=== PATIENT | female | born 1965 | race Caucasian/White ===

== ENCOUNTER → 2016-12-29 | Day surgery (SDC) | payer OTHER ==
[2016-12-27 08:38] VITALS: Ht 163.8 cm; Wt 90.9 kg
[~2016-12-29] VITALS: Ht 163.8 cm; Wt 90.9 kg
[~2016-12-29] MED LIST: CHOL100010 PO; DAYQLIQ PO; LEVA1.258 INH; LIDOCAINE HCL 2% 2 ML VIAL (20MG/ML) ONE; MIDAZOLAM HCL 1 MG/ML 2ML VIAL ONE; OMEG10007 PO; ONDANSETRON INJ 2 MG/ML 2 ML VIAL ONE; PROPOFOL IV EMULSION 10 MG/ML 20 ML VIAL IV ONE; PRVHFAIN INH; SODIUM CHLORIDE 0.9% 500ML 500 ML IV ONE; SYMIN160 INH
--- NOTE | 2016-12-29 14:49 | Endo History and Physical ---
History & Physical Date of Service: Dec 29, 2016. Chief Complaint: History of colon polyps Referring Physician: Dr. Heath History of Present Illness 51 yo CF who presents for colonoscopy secondary to history of colon polyps. Past Medical History Diabetes, Asthma, Depression Past Surgical History Hx Cardiac Surgery: No Hx Internal Defibrillator: No Hx Pacemaker: No Hx Abdominal Surgery: Yes (PARTIAL HYSTER) Hx of Implantable Prosthesis: No Hx Post-Op Nausea and Vomiting: No Hx Cancer Surgery: No Hx Thoracic Surgery: No Hx Orthopedic: Yes (LT CTR) Hx Urinary Tract Surgery: No Family History Colon CA Social History Smoking Status: Never Smoker Hx Substance Use: No Hx Alcohol Use: No Allergies Coded Allergies: Grass (Verified Allergy, Unknown, ASTHMA, 12/27/16) Molds and Smuts (Verified Allergy, Unknown, ASTHMA, 12/27/16) NO KNOWN DRUG ALLERGIES (Verified Allergy, Unknown, ., 12/27/16) POLLEN (Verified Allergy, Unknown, ASTHMA, 12/27/16) Current Medications Reported Home Medications Medications Dose Route/Sig Max Daily Dose Days Date Category [Dayquil] 1 Tab PO DAILY OR BID PRN 12/27/16 Reported Ventolin Hfa (Albuterol) 60 Puffs/5400 Mcg Aers 2 Puffs INH Q6H PRN 12/27/16 Reported Symbicort 160/4.5 Inhaler (Budesonide/Formoterol Fumarate) Aero 2 Puffs INH BID PRN 12/27/16 Reported Levalbuterol Hcl 1.25 Mg/3 Ml Neb 1 Vial INH TID PRN 12/27/16 Reported Vitamin D (Cholecalciferol) 1,000 Inter.unit Tab 2,000 Inter.unit PO DAILY 01/20/14 Reported [place]-3 (Fish Oil) 1 Ea Cap 1 Cap PO DAILY 01/17/14 Reported Vital Signs Weight (Kilograms): 90.91 Height (Feet): 5 Height (Inches): 4.5 Physical Exam General Appearance: WD/WN, no apparent distress Respiratory/Chest: Auscultation: breath sounds normal Cardiovascular: Heart Auscultation: RRR Abdomen: Bowel Sounds: normal Inspection & Palpation: soft, non-distended, no tenderness, guarding & rebound Assessment and Plan Assessment: 51 yo CF who presents for colonoscopy secondary to history of colon polyps. Plan: Proceed with colonoscopy.
--- NOTE | 2016-12-29 15:15 | Discharge Instructions ---
Endoscopy Patient Instructions Date / Procedure(s) Performed Dec 29, 2016. Colonoscopy Allergy Information Coded Allergies: Grass (Verified Allergy, Unknown, ASTHMA, 12/27/16) Molds and Smuts (Verified Allergy, Unknown, ASTHMA, 12/27/16) NO KNOWN DRUG ALLERGIES (Verified Allergy, Unknown, ., 12/27/16) POLLEN (Verified Allergy, Unknown, ASTHMA, 12/27/16) Discharge Date / Findings Dec 29, 2016. Internal hemorrhoids Medication Instructions OK to resume all medications today as prescribed. Reported Home Medications Medications Dose Route/Sig Max Daily Dose Days Date Category [Dayquil] 1 Tab PO DAILY OR BID PRN 12/27/16 Reported Ventolin Hfa (Albuterol) 60 Puffs/5400 Mcg Aers 2 Puffs INH Q6H PRN 12/27/16 Reported Symbicort 160/4.5 Inhaler (Budesonide/Formoterol Fumarate) Aero 2 Puffs INH BID PRN 12/27/16 Reported Levalbuterol Hcl 1.25 Mg/3 Ml Neb 1 Vial INH TID PRN 12/27/16 Reported Vitamin D (Cholecalciferol) 1,000 Inter.unit Tab 2,000 Inter.unit PO DAILY 01/20/14 Reported [place]-3 (Fish Oil) 1 Ea Cap 1 Cap PO DAILY 01/17/14 Reported Provider Instructions Activity Restrictions - No exercising or heavy lifting for 24 hours. - Do not drink alcohol the day of the procedure. - Do not drive a car or operate machinery until the day after the procedure. - Do not make any important decisions or sign important papers in 24 hours after the procedure. Following Day: - Return to full activity which may include returning to work/school. Diet Start your diet with liquids and light foods (jello, soup, juice, toast). Then eat your usual diet if not nauseated. Treatment For Common After Affects For mild abdominal pain, bloating, or excessive gas: - Rest - Eat lightly - Lie on right side Follow-Up Information Follow-up with as scheduled Anesthesia Information What You Should Know You have had a procedure that required some medicine to reduce anxiety and discomfort. This treatment is called moderate sedation. After receiving the treatment, you may be sleepy, but you will be able to breathe on your own. The effects of the treatment may last for several hours. Follow these instructions along with Activity/Diet recommendations noted above: * Do NOT do anything where dizziness or clumsiness would be dangerous. * Rest quietly at home today, then you can be up and about tomorrow. * Have a responsible person stay with you the rest of today. * You may have had an I.V. today. If so, you may take the dressing off later today. Recommendations Call your doctor if: * Trouble breathing * Continuous vomiting for more than 24 hours * Temperature above 101 degrees * Severe abdominal pain or bloating * Pain not relieved by pain medicine ordered * There is increased drainage or redness from any incision * A large amount of rectal bleeding greater than 2-3 tablespoons. (If you had a polyp/s removed or have hemorrhoids, a small amount of blood - from the rectum is to be expected.) * You have any unanswered questions or concerns. IN THE EVENT OF A SERIOUS EMERGENCY, GO TO THE NEAREST EMERGENCY ROOM Your discharge instructions were prepared by provider Mandeep Roche. Patient Instructions Signature Page Ama Tineo Patient (or Guardian) Signature/Date: I have read and understand the instructions given to me by my caregivers. Caregiver/RN/Doctor Signature/Date: The above-named patient and/or guardian has received patient instructions on this date. + Original Patient Signature Page (only) stays with chart. Please make copy for patient.
--- NOTE | 2016-12-29 15:47 | GI REPORT ---
Procedure Date: 12/29/2016 3:13 PM Procedure: Colonoscopy Indications: High risk colon cancer surveillance: Personal history of colonic polyps Medicines: Monitored Anesthesia Care Complications: No immediate complications. Estimated Blood Loss: Estimated blood loss: none. Procedure: Pre-Anesthesia Assessment: - Prior to the procedure, a History and Physical was performed, and patient medications and allergies were reviewed. The patient's tolerance of previous anesthesia was also reviewed. The risks and benefits of the procedure and the sedation options and risks were discussed with the patient. All questions were answered, and informed consent was obtained. Prior Anticoagulants: The patient has taken no previous anticoagulant or antiplatelet agents. ASA Grade Assessment: II - A patient with mild systemic disease. After reviewing the risks and benefits, the patient was deemed in satisfactory condition to undergo the procedure. After I obtained informed consent, the scope was passed under direct vision. Throughout the procedure, the patient's blood pressure, pulse, and oxygen saturations were monitored continuously. The scope was introduced through the anus and advanced to the terminal ileum. The colonoscopy was performed without difficulty. The patient tolerated the procedure well. The quality of the bowel preparation was good. The terminal ileum, ileocecal valve, appendiceal orifice, and rectum were photographed. Findings: Non-bleeding internal hemorrhoids were found during retroflexion. The hemorrhoids were small. The exam was otherwise without abnormality. Impression: - Non-bleeding internal hemorrhoids. - The examination was otherwise normal. - No specimens collected. Recommendation: - Resume previous diet. - Continue present medications. - Repeat colonoscopy in 5 years for surveillance. - Return to primary care physician as previously scheduled. Mandeep Roche, DO 12/29/2016 3:46:55 PM This report has been signed electronically. Note Initiated On: 12/29/2016 3:13 PM I attest to the content of the Intraoperative Record and orders documented therein, exceptions below
--- NOTE | 2016-12-29 15:59 | Anesthesiology Progress Note ---
Anesthesia Post Op Note Date & Time Dec 29, 2016 at 16:00 Vital Signs Pain Intensity: 0 Vital Signs Past 12 Hours Date Time Temp Pulse Resp B/P Pulse Ox O2 Delivery O2 Flow Rate FiO2 12/29/16 15:45 69 16 99/58 97 Room Air 12/29/16 14:51 36.8 72 14 128/62 96 Room Air Notes Mental Status: alert / awake / arousable, participated in evaluation Pt Amnestic to Procedure: Yes Nausea / Vomiting: adequately controlled Pain: adequately controlled Airway Patency, RR, SpO2: stable & adequate BP & HR: stable & adequate Hydration State: stable & adequate Anesthetic Complications: no major complications apparent
[2016-12-29 16:15] VITALS: BP 130/87; PULSE 61; O2SAT 97
== END | disposition home or self-care (01) ==
LOC: C.GI 13:59
PROVIDERS: ATTEND Internal Medicine
DX: Z12.11 Encounter for screening for malignant neoplasm of colon (principal); Z86.010 Personal history of colon polyps; K64.8 Other hemorrhoids; Z80.0 Family history of malignant neoplasm of digestive organs; E11.9 Type 2 diabetes mellitus without complications; J45.909 Unspecified asthma, uncomplicated; F32.9 Major depressive disorder, single episode, unspecified; Z90.710 Acquired absence of both cervix and uterus

== ENCOUNTER → 2017-03-01 | Outpatient (CLI) | payer OTHER ==
[~2017-03-01] MED LIST changes: -LIDOCAINE HCL 2% 2 ML VIAL (20MG/ML) ONE; -MIDAZOLAM HCL 1 MG/ML 2ML VIAL ONE; -ONDANSETRON INJ 2 MG/ML 2 ML VIAL ONE; -PROPOFOL IV EMULSION 10 MG/ML 20 ML VIAL IV ONE; -SODIUM CHLORIDE 0.9% 500ML 500 ML IV ONE
[2017-03-01 09:36] LABS: ESTIMATED AVERAGE GLUCOSE 128 mg/dl; HA1C FLAG Normal (Normal)
[2017-03-01 09:40] LABS: ALT/SGPT 32 U/L (12-78); AST/SGOT 18 U/L (15-37); BLOOD UREA NITROGEN 19 mg/dl (7-18); BUN/CREATININE RATIO 21.6 (10-20); CARBON DIOXIDE 25 mmol/L (21-32); CHLORIDE 110 mmol/L (98-107); CHOLESTEROL 153 mg/dl (0-200); CREATININE 0.88 mg/dl (0.60-1.20); GLUCOSE 122 mg/dl (70-99); SODIUM 142 mmol/L (136-145); TRIGLYCERIDES 160 mg/dl (0-150); VERY LOW DENSITY LIPOPROT CALC 32 mg/dl
[2017-03-01 09:43] LABS: CHOLESTEROL/HDL RATIO 5.1; HDL CHOLESTEROL 30 mg/dl; LDL CHOLESTEROL CALCULATED 91 mg/dl
[2017-03-01 09:44] LABS: HEMATOCRIT 37.4 % (37-47); MEAN CELL VOLUME 80.3 fL (80-100); MEAN CORPUSCULAR HEMOGLOBIN 27.7 pg (25-34); MEAN CORPUSCULAR HGB CONC 34.5 g/dl (32-36); MEAN PLATELET VOLUME 9.8 fL (7.4-10.4); PLATELET COUNT 185 K/uL (130-400); RED BLOOD COUNT 4.66 M/uL (4.2-5.4); WHITE BLOOD COUNT 1.78 K/uL (4.8-10.8)
[2017-03-01 09:59] LABS: BASO % 0.6 %; BASO ABS # 0.01 K/uL (0-0.2); COMPLETE YES; EOS % 2.2 %; LARGE PLATELETS 1+; LYMPH % 61.2 %; LYMPH ABS # 1.09 K/uL (1.2-3.4); MONO % 19.7 %; NEUT % 16.3 %
[2017-03-01 10:10] LABS: CALCIUM 9.4 mg/dl (8.5-10.1)
== END | disposition home or self-care (01) ==
LOC: C.LAB 07:59
PROVIDERS: ATTEND Internal Medicine
DX: R73.03 Prediabetes (principal); D70.9 Neutropenia, unspecified; E78.5 Hyperlipidemia, unspecified

== ENCOUNTER → 2017-12-07 | Outpatient (CLI) | payer OTHER ==
--- NOTE | 2017-12-07 12:24 | DIAGNOSTIC IMAGING REPORT ---
CHEST 2 VIEWS ROUTINE CLINICAL HISTORY: R05 cough COMPARISON STUDY: 04/27/2016 FINDINGS: The cardiac and mediastinal contours are normal. There is no evidence of focal pulmonary consolidation. There is no evidence of failure. No pleural effusions are visualized.[ IMPRESSION: No active disease in the chest. Electronically signed by: Benson Mtz M.D. 12/07/2017 12:22 PM Dictated Date/Time: 12/07/2017 12:22 PM
[2017-12-07 13:25] LABS: BASO % 0.3 %; BASO ABS # 0.01 K/uL (0-0.2); EOS % 0.5 %; EOS ABS # 0.02 K/uL (0-0.5); HEMATOCRIT 39.8 % (37-47); HEMOGLOBIN 13.8 g/dL (12.0-16.0); IG# 0.03 K/uL (0.00-0.02); LYMPH % 28.9 %; LYMPH ABS # 1.06 K/uL (1.2-3.4); MEAN CELL VOLUME 81.4 fL (80-100); MEAN CORPUSCULAR HEMOGLOBIN 28.2 pg (25-34); MEAN CORPUSCULAR HGB CONC 34.7 g/dl (32-36); MEAN PLATELET VOLUME 9.4 fL (7.4-10.4); MONO % 10.6 %; MONO ABS # 0.39 K/uL (0.11-0.59); NEUT % 58.9 %; NEUT ABS # 2.16 K/uL (1.4-6.5); PLATELET COUNT 250 K/uL (130-400); RED CELL DISTRIBUTION WIDTH CV 14.3 % (11.5-14.5); RED CELL DISTRIBUTION WIDTH SD 41.8 fL (36.4-46.3); WHITE BLOOD COUNT 3.67 K/uL (4.8-10.8)
[2017-12-07 13:54] LABS: BLOOD UREA NITROGEN 27 mg/dl (7-18); CALCIUM 9.4 mg/dl (8.5-10.1); CARBON DIOXIDE 25 mmol/L (21-32); CREATININE 0.92 mg/dl (0.60-1.20); GLUCOSE 135 mg/dl (70-99); POTASSIUM 3.9 mmol/L (3.5-5.1); SODIUM 136 mmol/L (136-145)
== END | disposition home or self-care (01) ==
LOC: C.RAD1850 11:55
PROVIDERS: ATTEND Nurse Practitioner Adult Health
DX: R05 Cough (principal)

== ENCOUNTER → 2018-01-12 | Outpatient (CLI) | payer OTHER ==
--- NOTE | 2018-01-13 06:42 | PAP/PSG TECHNICIAN REPORT ---
[facility] Corporate Director Of Pharmacy Polysomnogram Report Study name: None Report date: 01/13/2018 Study date: 01/12/2018 Referring Physician: DR. STANLEY Name: LUZ TINEO Interpreting Physician: Breezy Stanley M.D. Date of : 1965 Corporate Director Of Pharmacy: Freddy Gottlieb RPSSUSHILA. Sex: Female Age: 52 StudyType: PSG Weight: 15.5 inches Height: 52 years, Height Neck Circum: BMI: Medications: FLUTICASONE PROPIONATE 50 MCG/ACT, GLUCOSAMINE-CHONDROITIN, LEVALBUTEROL HCL 1.25 MG, METHYLPREDNISOLONE 4 MG, OMEGA 3, ONETOUCH ULTRA BLUE, SYMBICORT 160-4.5 MCG/ACT, VENTOLIN HFA 108 90 BASE Patient History PATIENT HAS HISTORY OF DAYTIME SLEEPINESS AND SNORING. SHE HAD A SLEEP STUDY DONE MANY YEARS AGO BUT WAS NOT POSITIVE FOR ABI. SHE HAS GAINED SOME WEIGHT SINCE THEN. SHE IS HERE TODAY FOR AN EVALUATION FOR ABI. ESS = 11 RM 8 Parameters Monitored NPSG: E1-M2, E2-M1, Fp1-M2, Fp2-M1, F3-M2, F4-M2, F4-M1, C3-M2, C4-M2, C4-M1, O1-M2, O2-M2, O2-M1, T3-M2, T4-M1, P3-M2, P4-M1, CHIN1, CHIN2, HR, EKG, Legs, PFLOW, SNOR, FLOW, CFLOW, Tidal Volume, THOR, ABDO, SpO2, PLTH, CPRESS, ETCO2 Wave, ETCO2, pH Sleep Architecture Sleep Stages Time at Lights Off 10:33:04 PM STAGES Time (min.) TST (%) Time at Lights On 5:55:34 AM Wake 54.5 -- Total Recording Time (TRT) 443.00 min. N1 22.0 6 Total Sleep Period (TSP) 431.0 min. N2 269.5 69 Total Sleep Time (TST) 388.0min. N3 32.0 8 Awake Time 54.5 min. REM 64.5 17 Wake after Sleep Onset 43.0 min. Sleep Efficiency (SE) 88 % Sleep Onset Latency (YAJAIRA) 11.5 min. Number of Stage 1 Shifts None Awakenings 25 Stage Changes 85 Number of REM periods 6 REM 64.5 17 REM Latency 134.0 min. NREM 323.5 83 Body Position Analysis Supine Right Left Side Prone Vertical Total Sleep Time (min.) 1.7 108.3 194.7 303.00 91.6 0.0 Total Sleep Time (%) 0% 28% 50% 78 22% N/A% Total Sleep Time REM (min.) 0.0 33.0 18.0 None 13.5 0.0 Total Sleep Time NREM (min.) 0.0 75.3 176.7 None 71.5 0.0 Intermittent Wake (min.) 1.7 6.6 39.6 None 6.6 0.0 Total Sleep Period (%) 0% None None None None None Arousals Myoclonus (PLM) * Events Count Index Events Count Index Spontaneous 38 6 Events Awake (PLMW) 38 41.8 Respiratory 9 1.4 Events Asleep w/ Arousal (PLMA) 1 0.2 PLM 0 0 Events Asleep w/o Arousal (PLMS) 31 4.8 Snoring 7 1 Total Asleep 32 4.9 Total 54 8 Total 70 9 Respiratory Analysis * CA OA MA CH H RERA Total Count 0 7 0 0 98 4 105 Index 0.0 1.1 0.0 0 15.2 1 16.9 Mean Duration 0.0 12.5 0.0 0.00 16.8 13.7 16.4 Longest Duration 0.0 14.5 0.0 0.00 0.0 14.5 33.5 Respiratory Event Summary Total Supine ~Supine Right Left Prone REM NREM Apneas Count 7 N/A 7 3 3 1 4 3 Index 1.1 N/A 1 1.7 0.9 1 4 1 Hypopneas (4% Desat) Count 98 N/A 98 17 65 16 33 65 Index 15.2 N/A 15 9.4 20.0 11.3 30.7 12.1 Apneas & All Hypopneas Count 105 N/A 105 20 68 17 37 68 Index 16.2 N/A 16 11 21 12 34.4 12.6 Respiratory Events ([employer] Operator+All Hyp+RERA) Count 105 N/A 109 20 71 18 37 68 Index 16.9 N/A 17 11.1 21.9 12.7 34.4 13.4 Respiratory Related Arousal Count 9 N/A 9 0 8 1 0 9 Index 1.4 N/A 1 0 2 1 0 2 Snoring Analysis Supine Right Left Prone REM NREM Total Snore duration 59.6 min Snores count N/A 636 1,145 889 609 2,061 2,670 Snore mean duration 1.3 Sec Snores index N/A 352 353 628 566.5 382.3 412.9 TST with snoring (%) 15.4% Desaturation Event Summary: Minimum %SpO2 Event Count Mean/Min/Max Duration(sec.) Desaturation Index % Time In Bed > 90 69 31.8 / 10.8 / 61.0 30.7 30.5 86 - 90 58 26.6 / 10.8 / 53.7 11.6 67.9 81 - 85 0 N/A 0.0 1.6 76 - 80 0 N/A 0.0 0.0 71 - 75 0 N/A 0.0 0.0 66 - 70 0 N/A 0.0 0.0 61 - 65 0 N/A 0.0 0.0 56 - 60 0 N/A 0.0 0.0 51 - 55 0 N/A 0.0 0.0 < 50 0 N/A 0.0 0.0 Total REM NREM Awake <50% 0.0 min. 0.0 min. 0.0 min. 0.0 min. 51 - 60% 0.0 min. 0.0 min. 0.0 min. 0.0 min. 61 - 70% 0.0 min. 0.0 min. 0.0 min. 0.0 min. 71 - 80% 0.1 min. 0.1 min. 0.0 min. 0.0 min. 81 - 90% 307.1 min. 48.0 min. 239.3 min. 19.8 min. 91 - 100% 135.0 min. 16.3 min. 84.2 min. 34.5 min. Average 90 89 90 91 Minimum SpO2 77 77 84 84 Desaturation Event Index 15.1 35.3 12.2 7.7 # Desat. Events below 89% 96 34 58 4 Time(%) with Saturation below 89% 22.4 5.7 15.6 1.0 Time(min.) with Saturation below 89% 98.9 25.4 69.1 4.4 Time (mins) REM (mins) NREM (mins) % of TST SpO2 Below 90% 104 38 N66 47.1 SpO2 Below 88% 45 0 0 10 Heart Rate Analysis Min (bpm) Max (bpm) Average (bpm) Awake 57 127 73 NREM 56 99 71 REM 59 101 78 Overall 56 101 72 Supplemental O2 Values Minimum O2 level: None Value Start Time End Time Corporate Director Of Pharmacy Comments Ms. Tineo slept in the right, left, supine and prone positions. PVC's noted. Leg movements noted. No bruxism noted. Snoring was noted and scored as a 3 on a scale of 1 through 5. (0=no snoring, 5=snoring loud enough to be heard through a closed door or down the andre way) Ms. Tineo awoke to use the restroom 0 times during the night. Ms. Tineo stated I did not sleep as well as I do when I am in my own bed. The final report will be interpreted and signed by a sleep physician. The completed physician report will then be placed in the patient medical record. Therapy (cm H2O) 0 TIB (min.) 442.5 TST (min.) 388.0 Sleep Onset (min.) 11.5 REM Onset From Sleep (min.) 134.0 Sleep Efficiency % 88 Wakefulness (%) 12 Wakefulness (min.) 54.5 NREM 1 (%) 6 NREM 1 (min.) 22.0 NREM 2 (%) 69 NREM 2 (min.) 269.5 NREM 3 (%) 8 NREM 3 (min.) 32.0 REM (%) 17 REM (min.) 64.5 # Arousals 54 Arousal Index 8 # Snore 2,670 Snore Index 412.9 AHI 16.2 AHI Supine N/A AHI Non-Supine 16 NREM AHI 12.6 REM AHI 34.4 RDI 16.9 # Obstructive Apnea 7 # Central Apnea 0 # Mixed Apnea 0 # Hypopneas 98 RERAs 4 Total Respiratory Events 110 Time Below SpO2 89% (min.) 94.6 Mean NREM SpO2 (%) 90 Mean REM SpO2 (%) 89 Mean Sleep SpO2 (%) 89 Min NREM SpO2 (%) 84 Min REM SpO2 (%) 77 Position Supine (min.) 1.7 Position Non-supine (min.) 388.0 LM Index Sleep 4.9 LM Index NREM 2.8 LM Index REM 15.8 Mean Heart Rate (bpm) 72 Min Heart Rate (bpm) 56
--- NOTE | 2018-01-19 12:41 | POLYSOMNOGRAPH REPORT ---
CLINICAL DATA: A 52-year-old female referred by myself, Elizabeth Parisi and Dr. Heath for evaluation of fatigue and sleep disturbance. The patient had a sleep study done in 2004 which did not show evidence of sleep apnea. Since that time, she has gained weight and has had loud snoring reported. Her [place] sleepiness score is 11/24. SLEEP ARCHITECTURE: Total sleep period was 431 minutes. Total sleep time was 388 minutes divided between 323.5 minutes of non-REM sleep and 64.5 minutes of REM sleep. Sleep onset latency was 11.5 minutes. REM latency was 134 minutes. Sleep efficiency was 88%. Wake after sleep onset was 43 minutes. Sleep consisted of stage N1 6%, stage N2 69%, stage N3 8%, and REM 17%. AROUSAL DATA: Fifty four arousals were recorded for an index of 8 per hour. Thirty eight were spontaneous. PERIODIC LIMB MOVEMENT DATA: Thirty two limb movements during sleep were noted for an index of 4.9 per hour with arousal index of 0.2 per hour. RESPIRATORY DATA: Moderate sleep apnea was seen. The AHI was 16.2. The RDI was 16.9. There were 7 obstructive apneic episodes. The longest apneic episode was 14.5 seconds. There were 98 hypopneic episodes with a mean duration of 16.8 seconds. There were 4 RERAs. The longest RERA was 14.5 seconds. OXIMETRY DATA: Nocturnal hypoxemia was seen. Oxygen corina was 77% during REM. Mean saturation was 90%. Time below 88% was 45 minutes. ECHOCARDIOGRAM: Heart rate ranged from 56-101 beats per minute. PVCs were noted. [employer] COMMENTS: The patient slept in the right, left, supine, and prone position. Snoring was moderate, rated 3 on a scale of 1-5. IMPRESSION: Moderate sleep apnea/hypopnea with an apnea/hypopnea index of 16.2 and a respiratory disturbance index of 16.9 with nocturnal hypoxemia. RECOMMENDATIONS: The patient may benefit from use of an oral appliance, use of auto CPAP, or repeat sleep study with CPAP. Clinical correlation is needed. [facility]
== END | disposition home or self-care (01) ==
LOC: C.NEUR 20:00
PROVIDERS: ATTEND Internal Medicine Pulmonary Disease
DX: J45.909 Unspecified asthma, uncomplicated (principal); R05 Cough; R53.83 Other fatigue

== ENCOUNTER → 2018-01-27 | Outpatient (CLI) | payer OTHER ==
--- NOTE | 2018-01-28 06:27 | PAP/PSG TECHNICIAN REPORT ---
[facility] It Programmer Analyst Polysomnogram Report Study name: None Report date: 01/28/2018 Study date: 01/27/2018 Referring Physician: DR. STANLEY Name: LUZ TINEO Interpreting Physician: Breezy Stanley M.D. Date of : 1965 It Programmer Analyst: Inocencia Mendenhall [facility]. Sex: Female Age: 53 StudyType: PSG PAP Weight: Height: 53 years, Height Neck Circum: 15.5 inches BMI: Medications: FLUTICASONE PROPIONATE 50 MCG/ACT, GLUCOSAMINE-CHONDROITIN, LEVALBUTEROL HCL 1.25 MG, METHYLPREDNISOLONE 4 MG, OMEGA 3, ONETOUCH ULTRA BLUE, SYMBICORT 160-4.5 MCG/ACT, VENTOLIN HFA 108 90 BASE Patient History 53 yr. old female here for a new titration sleep study. Patients PSG was done on 01/12/18 and she had an AHI of 16.9. ESS 09/29 Parameters Monitored NPSG: E1-M2, E2-M1, Fp1-M2, Fp2-M1, F3-M2, F4-M2, F4-M1, C3-M2, C4-M2, C4-M1, O1-M2, O2-M2, O2-M1, T3-M2, T4-M1, P3-M2, P4-M1, CHIN1, CHIN2, HR, EKG, Legs, PFLOW, SNOR, FLOW, CFLOW, Tidal Volume, THOR, ABDO, SpO2, PLTH, CPRESS, ETCO2 Wave, ETCO2, pH Sleep Architecture Sleep Stages Time at Lights Off 10:30:39 PM STAGES Time (min.) TST (%) Time at Lights On 5:57:39 AM Wake 38.0 -- Total Recording Time (TRT) 447.00 min. N1 20.0 5 Total Sleep Period (TSP) 434.5 min. N2 286.5 70 Total Sleep Time (TST) 409.0min. N3 26.5 6 Awake Time 38.0 min. REM 76.0 19 Wake after Sleep Onset 25.5 min. Sleep Efficiency (SE) 91 % Sleep Onset Latency (YAJAIRA) 12.5 min. Number of Stage 1 Shifts None Awakenings 22 Stage Changes 81 Number of REM periods 8 REM 76.0 19 REM Latency 57.5 min. NREM 333.0 81 Body Position Analysis Supine Right Left Side Prone Vertical Total Sleep Time (min.) 11.2 145.5 255.1 400.59 0.0 5.7 Total Sleep Time (%) 2% 36% 62% 98 0% N/A% Total Sleep Time REM (min.) 0.0 22.5 53.5 None 0.0 0.0 Total Sleep Time NREM (min.) 8.4 123.0 201.6 None 0.0 0.0 Intermittent Wake (min.) 2.8 12.9 16.5 None 0.0 5.7 Total Sleep Period (%) 2% None None None None None Arousals Myoclonus (PLM) * Events Count Index Events Count Index Spontaneous 13 2 Events Awake (PLMW) 51 80.5 Respiratory 0 0.0 Events Asleep w/ Arousal (PLMA) 10 1.5 PLM 10 1 Events Asleep w/o Arousal (PLMS) 44 6.5 Snoring 3 0 Total Asleep 54 7.9 Total 26 4 Total 105 14 Respiratory Analysis * CA OA MA CH H RERA Total Count 0 0 0 0 3 0 3 Index 0.0 0.0 0.0 0 0.4 0 0.4 Mean Duration 0.0 0.0 0.0 0.00 28.6 0.0 28.6 Longest Duration 0.0 0.0 0.0 0.00 0.0 0.0 37.7 Respiratory Event Summary Total Supine ~Supine Right Left Prone REM NREM Apneas Count 0 0 0 0 0 N/A 0 0 Index 0.0 0 0 0.0 0.0 N/A 0 0 Hypopneas (4% Desat) Count 3 0 3 0 3 N/A 0 3 Index 0.4 0.0 0 0.0 0.7 N/A 0.0 0.5 Apneas & All Hypopneas Count 3 0 3 0 3 N/A 0 3 Index 0.4 0 0 0 1 N/A 0.0 0.5 Respiratory Events (Rehabilitation Medicine Physician+All Hyp+RERA) Count 3 0 3 0 3 N/A 0 3 Index 0.4 0 0 0.0 0.7 N/A 0.0 0.5 Respiratory Related Arousal Count 0 0 0 0 0 N/A 0 0 Index 0.0 0 0 0 0 N/A 0 0 Snoring Analysis Supine Right Left Prone REM NREM Total Snore duration 17.1 min Snores count 4 23 725 N/A 2 750 752 Snore mean duration 1.4 Sec Snores index 29 9 171 N/A 1.6 135.1 110.3 TST with snoring (%) 4.2% Desaturation Event Summary: Minimum %SpO2 Event Count Mean/Min/Max Duration(sec.) Desaturation Index % Time In Bed > 90 11 25.8 / 12.8 / 52.3 3.9 38.0 86 - 90 9 18.1 / 7.8 / 42.3 2.0 62.0 81 - 85 0 N/A 0.0 0.0 76 - 80 0 N/A 0.0 0.0 71 - 75 0 N/A 0.0 0.0 66 - 70 0 N/A 0.0 0.0 61 - 65 0 N/A 0.0 0.0 56 - 60 0 N/A 0.0 0.0 51 - 55 0 N/A 0.0 0.0 < 50 0 N/A 0.0 0.0 Total REM NREM Awake <50% 0.0 min. 0.0 min. 0.0 min. 0.0 min. 51 - 60% 0.0 min. 0.0 min. 0.0 min. 0.0 min. 61 - 70% 0.0 min. 0.0 min. 0.0 min. 0.0 min. 71 - 80% 0.0 min. 0.0 min. 0.0 min. 0.0 min. 81 - 90% 275.8 min. 58.9 min. 206.8 min. 10.1 min. 91 - 100% 169.0 min. 17.0 min. 125.1 min. 26.9 min. Average 90 90 90 91 Minimum SpO2 86 87 86 88 Desaturation Event Index 2.0 0.0 1.8 7.9 # Desat. Events below 89% 10 N/A 8 2 Time(%) with Saturation below 89% 8.4 2.6 5.7 0.0 Time(min.) with Saturation below 89% 37.2 11.5 25.6 0.2 Heart Rate Analysis End Tidal CO2 Analysis Min (bpm) Max (bpm) Average (bpm) TSP (mins) % of TSP Awake 38 127 69 Above 55 mmHg 0.0 0.0 NREM 55 87 66 50-55 mmHg 0.0 0.0 REM 60 92 70 45-50 mmHg 409.0 100.0 Overall 55 92 67 40-45 mmHg 0.0 0.0 35-40 mmHg 0.0 0.0 30-35 mmHg 0.0 0.0 Average ETCO2 0.0 Supplemental O2 Values Minimum O2 level: None Value Start Time End Time It Programmer Analyst Comments MS. Tineo slept in the right, left, and supine positions. Cardiac arrhythmia noted. PLMs noted. No bruxism noted. CPAP was initiated at +4 CMH2O room air and up-titrated to al level of +7 CMH2O for snoring, A ResMed Mirage FX for her was used during titration. MS. Tineo did not wake to use the restroom during the night. MS. Tineo stated, I slept the same. The final report will be interpreted and signed by a sleep physician. The completed physician report will then be placed in the patient medical record. Therapy Event: Therapy (cm H20) 4 5 6 7 Total Time at Pressure (min.) 22.8 26.0 97.5 300.7 TST at Pressure (min.) 10.3 26.0 95.5 277.2 # Periods 1 1 1 1 Sleep Onset (min.) 12.5 0.0 0.0 0.0 REM Onset (min.) N/A N/A 21.2 11.7 Sleep Efficiency % 45 100 97 92 Wakefulness (%) 54.9 0.0 2.1 7.8 Wakefulness (min.) 12.5 0.0 2.0 23.5 NREM 1 (%) 15.4 0.0 2.1 4.8 NREM 1 (min.) 3.5 0.0 2.0 14.5 NREM 2 (%) 29.8 37.3 70.1 67.1 NREM 2 (min.) 6.8 9.7 68.3 201.7 NREM 3 (%) 0.0 62.7 10.4 0.0 NREM 3 (min.) 0.0 16.3 10.2 0.0 REM (%) 0.0 0.0 15.4 20.3 REM (min.) 0.0 0.0 15.0 61.0 # Arousals 0 0 7 19 Arousal Index 0.0 0.0 4.4 4.1 # Snore 40 286 390 36 Snore Index 233.3 658.9 245.1 7.8 AHI 17.5 0.0 0.0 0.0 AHI Supine N/A N/A 0.0 0.0 AHI Non-Supine 17.5 0.0 0.0 0.0 NREM AHI 17.5 0.0 0.0 0.0 REM AHI N/A N/A 0.0 0.0 RDI 17.5 0.0 0.0 0.0 # Obstructive 0 0 0 0 # Central Ap 0 0 0 0 # Mixed 0 0 0 0 # Hypopneas 3 0 0 0 RERAS 0 0 0 0 Total Respiratory Events 3 0 0 0 Time Below SpO2 89.00% (min.) 5.9 8.1 17.1 6.0 Mean NREM SpO2 (%) 89 89 90 90 Mean REM SpO2 (%) N/A N/A 89 90 Mean Sleep SpO2 (%) 89 89 90 90 Min NREM SpO2 (%) 87 87 87 86 Min REM SpO2 (%) N/A N/A 87 87 Position Supine (min.) 0.0 0.0 3.2 5.2 Position Non-supine (min.) 10.3 26.0 92.2 272.0 LM Index Sleep 0.0 0.0 3.1 10.6 LM Index NREM 0.0 0.0 3.0 6.1 LM Index REM N/A N/A 4.0 26.6 Mean Heart Rate (bpm) 66 68 67 66 Min Heart Rate (bpm) 58 64 58 55
--- NOTE | 2018-01-29 18:23 | POLYSOMNOGRAPH REPORT ---
CLINICAL DATA: A 53-year-old female, recently diagnosed with moderate sleep apnea with an AHI of 16.9, referred by myself for a CPAP titration study. SLEEP ARCHITECTURE: Total sleep period was 434.5 minutes. Total sleep time was 409 minutes divided between 333 minutes of non-REM sleep and 76 minutes of REM sleep. Sleep latency was 12.5 minutes. REM latency was 57.5 minutes. Sleep efficiency was 91%. Wake after sleep onset was 25.5 minutes. Sleep consisted of stage N1 5%, comes stage N2 70%, stage N3 6%, and REM 19%. AROUSAL DATA: Twenty six arousals were recorded for an index of 4 per hour. PERIODIC LIMB MOVEMENT DATA: Fifty four limb movements during sleep were noted for an index of 7.9 per hour with arousal index of 1.5 per hour. RESPIRATORY DATA: The AHI was 0.4. There were 3 hypopneic episodes. The mean duration of hypopnea was 28.6 seconds. OXIMETRY DATA: Transient mild nocturnal hypoxemia was seen. Oxygen corina was 86%. Mean saturation was 90%. ECHOCARDIOGRAM: Heart rates ranged from 55-92 beats per minute. Occasional PVCs were noted. LAWN MOWER OPERATOR'S COMMENTS AND TREATMENT SUMMARY: The patient slept in the right, left, and supine position. The patient used a ResMed Mirage FX mask. She was titrated up to 7 cm water pressure. At her final pressure setting, she slept for 277.2 minutes with an AHI of 0. IMPRESSION: Moderate sleep apnea/hypopnea corrected with CPAP 7 cm of water pressure with a ResMed Mirage FX mask. RECOMMENDATIONS: The patient should be started on the above noted treatment regimen and seen back in followup within 90 days to document and compliance. CHAKA
== END | disposition home or self-care (01) ==
LOC: C.NEUR 21:00
PROVIDERS: ATTEND Internal Medicine Pulmonary Disease
DX: J45.909 Unspecified asthma, uncomplicated (principal); G47.33 Obstructive sleep apnea (adult) (pediatric)

== ENCOUNTER → 2018-06-01 | Outpatient (CLI) | payer OTHER ==
[~2018-06-01] MED LIST changes: -CHOL100010 PO; +CPR500 PO; -DAYQLIQ PO; +FRRS300 PO; -LEVA1.258 INH; -OMEG10007 PO; +PANT1TAB4 PO; +POTTAB2 PO
[2018-06-01 09:51] LABS: HEMOGLOBIN A1C 6.2 % (4.5-5.6)
[2018-06-01 09:52] LABS: ALT/SGPT 38 U/L (12-78); AST/SGOT 18 U/L (15-37); BLOOD UREA NITROGEN 26 mg/dl (7-18); CALCIUM 8.9 mg/dl (8.5-10.1); CARBON DIOXIDE 21 mmol/L (21-32); CHOLESTEROL 167 mg/dl (0-200); CREATININE 1.02 mg/dl (0.60-1.20); GLUCOSE 133 mg/dl (70-99); LDL CHOLESTEROL CALCULATED 80 mg/dl; POTASSIUM 4.1 mmol/L (3.5-5.1); SODIUM 138 mmol/L (136-145)
== END | disposition home or self-care (01) ==
LOC: C.LAB 07:37
PROVIDERS: ATTEND Internal Medicine
DX: D70.9 Neutropenia, unspecified (principal); E78.5 Hyperlipidemia, unspecified

== ENCOUNTER 2025-09-26 22:48 | Observation (INO) ==
--- NOTE | 2025-09-26 23:02 | Emergency Department Note ---
Impression & Plan Atrial fibrillation with RVR Admission ED Provider Note HPI: History obtained from patient. The patient is a 60-year-old female who presents to the emergency department with a chief complaint of palpitations. Patient states that about 2 hours prior to arrival to the ER she began to have a sensation of palpitations as if she was having a skipped heartbeat. Patient denies any chest pain. Patient states that she has had previous episodes similar that were associated with atrial fibrillation. Patient states she is not currently on any medications for A-fib. On arrival here to the ED the patient is tachycardic in the 170s, blood pressure is 138/76, patient is saturating well on room air on arrival. ROS: - Per HPI Differential Diagnosis: Tachyarrhythmia to include atrial fibrillation with RVR, SVT, ventricular tachycardia, WPW, PVCs, amongst other potential pathologies. *Outpatient medications and allergy history reviewed. PE: General: Alert HEENT: Normocephalic, trachea midline Eyes: Extraocular eye movement is intact, no scleral erythema Pulmonary: Clear to auscultation bilaterally, no wheezing Cardio: Tachycardic rate with irregular rhythm GI: Abdomen is soft to palpation : No suprapubic tenderness MSK: No evidence of trauma or malformation of the extremities, no edema Skin: No evidence of rash Neuro: Alert, no focal deficits Psychiatric: Cooperative INDEPENDENT INTERPRETATIONS: chronic manager: (As interpreted by myself): - An order was placed for continuous cardiac monitoring - Patient was noted to be in atrial fibrillation with a rate of 173 EKG: (As interpreted by myself): Rate: 160 Rhythm: Atrial fibrillation with RVR Intervals: Within normal limits ST changes: No ST elevation Time: 2258 Chest x-ray: (As interpreted by myself): No acute disease Interventions provided in ED: - IV diltiazem bolus, IV metoprolol, IV diltiazem drip, IV fluid bolus Medical Decision Making: IV was established lab work obtained, patient was placed on grape cutter. Patient appears to be in atrial fibrillation with RVR, EKG confirms this without any obvious acute ischemic changes. Lab work shows a chronic leukopenia, hemoglobin is normal, platelet count is normal, CMP does not show any evidence of any critical findings, troponin is negative. Chest x-ray per my interpretation does not show any evidence of acute disease. Patient was given IV fluids as well as diltiazem and metoprolol here in the ED with improvement in her heart rate however she remained tachycardic, blood pressure was stable and therefore she was placed on a diltiazem drip. Given the patient's persistent tachycardia and she remains in A-fib, I do feel she would benefit from admission for cardiology consultation and further care. I discussed the patient's presentation with the on-call hospitalist, Dr. Parisi, and the patient was placed for admission in stable condition. Critical care time: 38 minutes -Stabilization of tachyarrhythmia requiring IV rate control medications for improvement, time spent at the bedside, interpretation of diagnostic studies including EKG, discussion with other physicians and arrangement of admission Consultants/Discussions held with other healthcare providers: - Hospitalist, Dr. Parisi Disposition discussion held by myself with: - Patient Diagnosis: 1. Atrial fibrillation with RVR, acute Disposition: Admission Neal Dumont DO Emergency Medicine Past Med/Surg History Problem List (Updated 09/27/25 @ 00:45 by Neal Dumont DO) Atrial fibrillation with RVR (Acute) Arthritis History of insertion of dental endosseous implant March 2025 Vitamin B12 deficiency Numbness and tingling of both feet Right hip pain Stress due to illness of family member Diabetes mellitus Hyperlipidemia History of colon polyps Neutropenia (Chronic) Asthma (Chronic) Carpal tunnel syndrome (Chronic) Moderate obstructive sleep apnea Vitamin D deficiency (Acute) Iron deficiency (Acute) Internal hemorrhoids (Acute) Depression (Acute) Allergic rhinitis (Acute) Health care maintenance Tubular adenoma Nocturnal hypoxemia Medical History Skin lesion Lump on finger Right knee pain Screening for thyroid disorder Screening for lipid disorders Prediabetes Neutropenia History of DVT (deep vein thrombosis) History of atrial fibrillation Sleep apnea Asthma History of COVID-19 History of colon polyps COVID-19 Surgical History History of carpal tunnel surgery of left wrist History of hysterectomy History of bone marrow biopsy History of esophagogastroduodenoscopy (EGD) History of colonoscopy S/P abdominal hysterectomy H/O oral surgery [place] teeth removed Family History Father Skin cancer Prostate cancer Atrial fibrillation Vestibular schwannoma Pacemaker Deafness Grandfather (Paternal) Colorectal cancer Brother Diabetes Depression Hypercholesteremia Grandmother (Maternal) No problems noted. Grandmother (Paternal) Diabetes Mother Diabetes Hypercholesteremia Hypothyroidism Hypertension Slow to wake up after anesthesia Grandfather No problems noted. Grandfather (Maternal) Heart disease Multiple myeloma Family/Other Obstructive sleep apnea Denies family history of Ovarian cancer Myocardial infarction Breast cancer Social History Smoking Status: Never smoker Second Hand Exposure: No; Do You Dip or Chew Tobacco: No; Hx Alcohol Use: No Hx Substance Use: No Preferred Language: Vietnamese Communication Ability: Effective Visual Impairment: No Limitations Hearing Ability: Normal Safety Instructor Required: No Beliefs That Will Affect Care: None marital status: Single Current Living Situation: Alone current occupational status: employed current occupation: [employer] Feels Safe at Home: Yes Childhood Exposure to Second-Hand Smoke: Yes Diet Comment: Plant based caffeine: Yes Dental Care, Regularly: Yes Physical Activity Frequency: Daily Seatbelt Use: always Sunscreen Use: Yes Assistive Devices: Glasses Allergies Allergies Allergy/AdvReac Type Severity Reaction Status Date / Time grass pollen-perennial rye, Allergy Intermediate ASTHMA Verified 09/27/25 00:17 standar mold Allergy Intermediate ASTHMA Verified 09/27/25 00:17 pollen extracts Allergy Intermediate ASTHMA Verified 09/27/25 00:17 metformin AdvReac Intermediate Diarrhea Verified 09/27/25 00:17 pneumococcal vaccine AdvReac Intermediate redness Verified 09/27/25 00:17 [From Pneumovax 23] and swelling at injection site Home Meds Home Medications Medication Instructions Recorded Confirmed levalbuterol HCl 1.25 mg/3 mL 1.25 mg inhalation TID PRN 07/06/19 09/27/25 solution for nebulization shortness of breath or wheezing #1 mL budesonide-formoterol HFA 160 2 puffs inhalation BID PRN 12/06/19 09/27/25 mcg-4.5 mcg/actuation aerosol Shortness Of Breath #1 g inhaler turmeric root extract 500 mg 500 mg PO QAM 12/14/21 09/27/25 capsule coQ10 (ubiquinol) 100 mg capsule 100 mg PO BID 10/16/23 09/27/25 (Qunol Link CoQ10) cholecalciferol (vitamin D3) 125 125 mcg PO DAILY 09/27/25 09/27/25 mcg (5,000 unit) tablet (Vitamin D3) Previous Rx's Medication Instructions Recorded albuterol sulfate 2.5 mg/3 mL 2.5 mg (3 mL) inhalation Q4H PRN 07/25/21 (0.083 %) solution for nebulization shortness of breath or wheezing #90 mL atorvastatin 10 mg tablet 10 mg PO DAILY #90 tabs 09/16/24 mecobalamin (vitamin B12) 1,000 1,000 mcg PO DAILY #90 tabs 01/10/25 mcg chewable tablet albuterol sulfate 90 mcg/actuation 2 puff inhalation Q6H PRN 02/03/25 aerosol inhaler shortness of breath #18 grams tirzepatide 7.5 mg/0.5 mL 7.5 mg (0.5 mL) subcut WK #2 mL 07/23/25 subcutaneous pen injector Results & Data (ED) Vital Signs Vital Signs - 24 hr 09/26/25 22:51 09/26/25 22:58 09/26/25 23:56 Temperature 36.8 C Temperature Source Temporal Artery Scan Pulse Rate 116 H 173 H 113 H Pulse Rate [Apical] Pulse Rhythm [Apical] Pulse Strength [Apical] Respiratory Rate 18 Respiratory Effort / Characteristics Non-Labored Spontaneous Respiratory Depth Normal Respiratory Pattern Blood Pressure 138/76 125/78 Blood Pressure [Right Arm] Blood Pressure Mean 96 Blood Pressure Mean [Right Arm] Blood Pressure Position [Right Arm] Pulse Oximetry 96 Oxygen Delivery Method Room Air Sepsis Recent Fever Within 48 Hours No Sepsis New/Unexplained Change in Mental Status N/A Sepsis Action Taken by Nursing No Action Required 09/27/25 00:15 09/27/25 00:28 Temperature Temperature Source Pulse Rate Pulse Rate [Apical] 113 H Pulse Rhythm [Apical] Regular Pulse Strength [Apical] Normal Respiratory Rate 18 Respiratory Effort / Characteristics Non-Labored Spontaneous Respiratory Depth Normal Respiratory Pattern Regular Blood Pressure Blood Pressure [Right Arm] 118/72 Blood Pressure Mean Blood Pressure Mean [Right Arm] 87 Blood Pressure Position [Right Arm] Semi-fowlers Pulse Oximetry 95 94 Oxygen Delivery Method Room Air Room Air Sepsis Recent Fever Within 48 Hours Sepsis New/Unexplained Change in Mental Status Sepsis Action Taken by Nursing Laboratory Data 09/26/25 22:55 09/26/25 22:55 Lab Results 09/26/25 Range/Units 22:55 WBC 3.13 L (4.8-10.8) K/ul RBC 4.73 (4.20-5.40) M/uL Hgb 13.6 (12.0-16.0) g/dL Hct 38.0 (37.0-47.0) % MCV 80.3 (80.0-100.0) fL MCH 28.8 (25.0-34.0) pg MCHC 35.8 (32.0-36.0) g/dL RDW Std Deviation 37.2 (36.4-46.3) fL RDW Coeff of July 12.8 (11.5-14.5) % Plt Count 230 (130-400) K/uL MPV 9.4 (9.4-12.4) fL Immature Gran % (Auto) 0.3 % Neut % (Auto) 28.7 % Lymph % (Auto) 51.8 % Cherry % (Auto) 17.6 % Eos % (Auto) 1.0 % Baso % (Auto) 0.6 % Neut # (Auto) 0.90 L* (1.40-6.50) K/uL Lymph # (Auto) 1.62 (1.20-3.40) K/uL Cherry # (Auto) 0.55 (0.11-0.59) K/uL Eos # (Auto) 0.03 (0.00-0.50) K/uL Baso # (Auto) 0.02 (0.00-0.20) K/uL Immature Gran # (Auto) 0.01 (0.01-0.20) K/uL PT 10.3 (9.0-12.0) Seconds INR 1.0 (0.9-1.1) Sodium 141 (136-145) mmol/L Potassium 3.8 (3.5-5.1) mmol/L Chloride 106 (98-107) mmol/L Carbon Dioxide 24 (21-32) mmol/L Anion Gap 11 (3-11) BUN 18 (6-23) mg/dl Creatinine 0.78 (0.6-1.2) mg/dl Est Cr Clr Drug Dosing 78.8 ml/min eGFR 85.82 BUN/Creatinine Ratio 23.1 H (10-20) Glucose 158 H (70-99(Fasting)) mg/dl Calcium 9.8 (8.6-10.3) mg/dl Magnesium 2.1 (1.7-2.4) mg/dl Total Bilirubin 0.5 (0.2-1.0) mg/dl AST 16 (13-39) U/L ALT 19 (7-52) U/L Alkaline Phosphatase 92 (34-104) U/L Troponin I High Sens 5.7 (0-14) pg/ml Total Protein 8.0 (6.0-8.3) gm/dl Albumin 4.5 (3.4-5.0) gm/dl Globulin 3.5 (2.5-4.0) gm/dl Albumin/Globulin Ratio 1.3 (0.9-2) TSH 4.324 (0.300-4.500) uIu/ml Administered Medications Discontinued Medications Diltiazem HCl (Diltiazem Hcl 5 Mg/Ml 5 Ml Vial) 15 mg IV NOW STA Stop: 09/26/25 23:01 Last Admin: 09/26/25 23:11 Dose: 15 mg Documented By: RAQUEL Co-signed By: DEYA Sodium Chloride (Nss) 500 mls @ 999 mls/hr IV .Q31M STA Stop: 09/26/25 23:25 Last Infusion: 09/26/25 23:52 Dose: Infused Documented By: Admin: 09/26/25 23:12 Dose: 999 mls/hr Documented By: RAQUEL Metoprolol Tartrate (Metoprolol Tartrate 1 Mg/Ml Vial) 5 mg IV NOW STA Stop: 09/26/25 23:42 Last Admin: 09/26/25 23:56 Dose: 5 mg Documented By: JANETTE Discharge Plan Visit Data Chief Complaint: Cardiac Assessment Stated Complaint: RAPID HR IRREGULAR HEART RATE PVCS? ED Provider: Neal Dumont Discharge Problem: Atrial fibrillation with RVR Patient Disposition: Admitted As Inpatient Condition: Fair Forms Stand Alone Forms: My [facility] Prescriptions Prescriptions: No Action atorvastatin 10 mg tablet 10 mg PO DAILY Qty: 90 3RF albuterol sulfate 90 mcg/actuation HFA aerosol inhaler 2 puff inhalation Q6H PRN (Reason: shortness of breath) Qty: 18 3RF coQ10 (ubiquinol) [Qunol Link CoQ10] 100 mg capsule 100 mg PO BID levalbuterol HCl 1.25 mg/3 mL solution for nebulization 1.25 mg inhalation TID PRN (Reason: shortness of breath or wheezing) Qty: 1 budesonide-formoterol 160-4.5 mcg/actuation HFA aerosol inhaler 2 puffs inhalation BID PRN (Reason: Shortness Of Breath) Qty: 1 mecobalamin (vitamin B12) 1,000 mcg tablet,chewable 1,000 mcg PO DAILY Qty: 90 3RF tirzepatide 7.5 mg/0.5 mL pen injector 7.5 mg subcut WK Qty: 2 5RF Rx Instructions: FRIDAYS turmeric root extract 500 mg capsule 500 mg PO QAM Rx Instructions: PER PT "MAKE A TEA WITH TURMERIC" albuterol sulfate 2.5 mg /3 mL (0.083 %) solution for nebulization 2.5 mg inhalation Q4H PRN (Reason: shortness of breath or wheezing) Qty: 90 0RF cholecalciferol (vitamin D3) [Vitamin D3] 125 mcg (5,000 unit) Tablet 125 mcg PO DAILY Referrals Referrals: River Biggs MD [Primary Care Provider] -
[2025-09-26] MEDS: SODIUM CHLORIDE 0.9% 500 ML IV STA (23:12)
[2025-09-26 23:25] LABS: Hematocrit (blood only) 38.0 % (37.0-47.0); Hemoglobin 13.6 g/dL (12.0-16.0); Mean Corpuscular Hemoglobin 28.8 pg (25.0-34.0); Mean Corpuscular Volume 80.3 fL (80.0-100.0); Platelet Count 230 K/uL (130-400); RDW Standard Deviation 37.2 fL (36.4-46.3); Red Blood Count 4.73 M/uL (4.20-5.40); White Blood Count 3.13 K/ul (4.8-10.8)
[2025-09-26 23:46] LABS: Alanine Aminotransferase 19.0 U/L (7-52); Albumin Globulin Ratio 1.3 (0.9-2); Albumin Level 4.5 gm/dl (3.4-5.0); Alkaline Phosphatase 92.0 U/L (34-104); Anion Gap 11.0 (3-11); Bilirubin,Total 0.5 mg/dl (0.2-1.0); Blood Urea Nitrogen 18.0 mg/dl (6-23); Calcium 9.8 mg/dl (8.6-10.3); Carbon Dioxide 24.0 mmol/L (21-32); Chloride 106.0 mmol/L (98-107); Creatinine Clr Calc Pharmacy 78.8 ml/min; Globulin 3.5 gm/dl (2.5-4.0); Glucose 158.0 mg/dl (70-99(Fasting)); Magnesium 2.1 mg/dl (1.7-2.4); Potassium 3.8 mmol/L (3.5-5.1); Sodium 141.0 mmol/L (136-145); Total Protein 8.0 gm/dl (6.0-8.3)
[2025-09-26 23:53] LABS: INR 1.0 (0.9-1.1); Prothrombin Time 10.3 Seconds (9.0-12.0)
[2025-09-26] MEDS: METOPROLOL TARTRATE 1 MG/ML VIAL IV STA (23:56)
[2025-09-26 23:59] LABS: Thyroid Stimulating Hormone 4.324 uIu/ml (0.300-4.500)
[2025-09-27 00:19] LABS: Immature Granulocytes # (auto) 0.01 K/uL (0.01-0.20); Immature Granulocytes % (auto) 0.3 %
--- NOTE | 2025-09-27 00:54 | History & Physical Report ---
Date of Service September 27, 2025 Assessment & Plan (1) Atrial fibrillation with RVR: (2) Sleep apnea: (3) Diabetes mellitus: (4) Hyperlipidemia: (5) Neutropenia: Plan Assessment/Plan - 60yo female presenting with atrial fibrillation with rapid ventricular response. HR has improved following IV Metoprolol, IV Diltiazem push, now on Diltiazem drip. Patient has had episodes of atrial fibrillation in the past - presently not on any anticoagulation or rate controlling medications. Asymptomatic. Blood pressure acceptable. #Atrial fibrillation -Admit to PCU -Continue Diltiazem drip for now -Anticoagulation with Eliquis 5mg po BID - [id number]=2, female and history of DM -Check 2D echo #ABI - patient non-compliant with CPAP. Encourage use, could help to manage further episodes of atrial fibrillation. Patient does not wish to wear it now #Diabetes -ISS #Hyperlipidemia -Continue Atorvastatin #Neutropenia - chronic, stable. Patient has been seen by Hematology in the past History of Present Illness Chief Complaint: atrial fibrillation Primary Care Provider: River Biggs MD 60yo female with history of DM, ABI, prior DVT s/p management with 6 months of Coumadin presenting with acute atrial fibrillation. Patient with episodes of atrial fibrillation in the past - likely in 1994, again several other times. This evening around 20:30 patient developed acute onset palpitations, racing and pounding heart. This occurred while having a "heated conversation" with a family member. No chest pain or syncope. No shortness of breath. In the ER patient found to be in atrial fibrillation with rapid ventricular response ER Course: Diltiazem 15mg IV Metoprolol 5mg IV Diltiazem gtt Allergies Allergy/AdvReac Type Severity Reaction Status Date / Time grass pollen-perennial rye, Allergy Intermediate ASTHMA Verified 09/27/25 00:17 standar mold Allergy Intermediate ASTHMA Verified 09/27/25 00:17 pollen extracts Allergy Intermediate ASTHMA Verified 09/27/25 00:17 metformin AdvReac Intermediate Diarrhea Verified 09/27/25 00:17 pneumococcal vaccine AdvReac Intermediate redness Verified 09/27/25 00:17 [From Pneumovax 23] and swelling at injection site Home Medications Medication Instructions Recorded Confirmed Type levalbuterol HCl 1.25 mg/3 mL 1.25 mg inhalation TID PRN 07/06/19 09/27/25 History solution for nebulization shortness of breath or wheezing #1 mL budesonide-formoterol HFA 160 2 puffs inhalation BID PRN 12/06/19 09/27/25 History mcg-4.5 mcg/actuation aerosol Shortness Of Breath #1 g inhaler albuterol sulfate 2.5 mg/3 mL 2.5 mg (3 mL) inhalation Q4H PRN 07/25/21 09/27/25 Rx (0.083 %) solution for nebulization shortness of breath or wheezing #90 mL turmeric root extract 500 mg 500 mg PO QAM 12/14/21 09/27/25 History capsule coQ10 (ubiquinol) 100 mg capsule 100 mg PO BID 10/16/23 09/27/25 History (Qunol Link CoQ10) atorvastatin 10 mg tablet 10 mg PO DAILY #90 tabs 09/16/24 09/27/25 Rx mecobalamin (vitamin B12) 1,000 1,000 mcg PO DAILY #90 tabs 01/10/25 09/27/25 Rx mcg chewable tablet albuterol sulfate 90 mcg/actuation 2 puff inhalation Q6H PRN 02/03/25 09/27/25 Rx aerosol inhaler shortness of breath #18 grams tirzepatide 7.5 mg/0.5 mL 7.5 mg (0.5 mL) subcut WK #2 mL 07/23/25 09/27/25 Rx subcutaneous pen injector cholecalciferol (vitamin D3) 125 125 mcg PO DAILY 09/27/25 09/27/25 History mcg (5,000 unit) tablet (Vitamin D3) Past Med/Surg History Problem List Atrial fibrillation with RVR (Acute) Arthritis History of insertion of dental endosseous implant March 2025 Vitamin B12 deficiency Numbness and tingling of both feet Right hip pain Stress due to illness of family member Diabetes mellitus Hyperlipidemia History of colon polyps Neutropenia (Chronic) Asthma (Chronic) Carpal tunnel syndrome (Chronic) Moderate obstructive sleep apnea Vitamin D deficiency (Acute) Iron deficiency (Acute) Internal hemorrhoids (Acute) Depression (Acute) Allergic rhinitis (Acute) Health care maintenance Tubular adenoma Nocturnal hypoxemia Medical History Skin lesion Lump on finger Right knee pain Screening for thyroid disorder Screening for lipid disorders Prediabetes Neutropenia chornic - unk etiology History of DVT (deep vein thrombosis) in her 20s d/t control - LLE 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 -- 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 Sleep apnea CPAP Asthma rare use of PRN inh History of COVID-19 07/2021; cough, sob, congestion, fever, body aches; resolved History of colon polyps COVID-19 Surgical History History of carpal tunnel surgery of left wrist History of hysterectomy History of bone marrow biopsy History of esophagogastroduodenoscopy (EGD) History of colonoscopy S/P abdominal hysterectomy H/O oral surgery [place] teeth removed Family History Father Skin cancer Prostate cancer Atrial fibrillation Vestibular schwannoma Pacemaker Deafness in one ear, patient not sure which ear Grandfather (Paternal) Colorectal cancer Brother Diabetes Depression Hypercholesteremia Grandmother (Maternal) No problems noted. Grandmother (Paternal) Diabetes Mother Diabetes Hypercholesteremia Hypothyroidism Hypertension Slow to wake up after anesthesia Grandfather No problems noted. Grandfather (Maternal) Heart disease Multiple myeloma Family/Other Obstructive sleep apnea Denies family history of Ovarian cancer Myocardial infarction Breast cancer Social History Smoking Status: Never smoker Second Hand Exposure: No; Do You Dip or Chew Tobacco: No; Hx Alcohol Use: No Hx Substance Use: No Preferred Language: Austrian Communication Ability: Effective Visual Impairment: No Limitations Hearing Ability: Normal Stamping Die Try Out Worker Required: No Beliefs That Will Affect Care: None marital status: Single Current Living Situation: Alone current occupational status: employed current occupation: [employer] Feels Safe at Home: Yes Safety Concerns: Feels Safe At This Time Childhood Exposure to Second-Hand Smoke: Yes Diet Comment: Plant based caffeine: Yes Dental Care, Regularly: Yes Physical Activity Frequency: Daily Seatbelt Use: always Sunscreen Use: Yes Assistive Devices: Glasses Review of Systems Review of Systems: All systems reviewed & are unremarkable except as noted in HPI & below Physical Exam Physical Exam: General: patient resting comfortably, NAD, non-toxic in appearance, AA&O x 4 Skin: warm, dry, intact, no rashes or lesions HEENT: NC/AT, PERRL, EOMI, anicteric sclera, conjunctiva without injection, external ear normal to inspection and nontender, nares patent, moist mucus membranes, dentition intact, no oropharyngeal lesions, neck supple, trachea midline, no LAD, no thyromegaly, no JVD Heart: +S1/S2, regular, no m/r/g Lungs: equal air entry bilaterally, no rales/rhonchi/wheezes Abd: +BS, soft, NT/ND, no masses/organomegaly/ascites Ext: warm, 2+ pulses in UE/LE bilaterally, no clubbing/cyanosis or edema Neuro: nonfocal, patient AA&O x 4, speech intact, no facial droop, moving all extremities on command with equal strength 5/5 Results & Data Results & Data Vital Signs (Past 12 Hours) Vital Signs Temp Pulse Pulse Resp BP BP Pulse Ox 09/27/25 00:28 113 H 18 118/72 94 09/27/25 00:15 95 09/26/25 23:56 113 H 125/78 09/26/25 22:58 173 H 09/26/25 22:51 36.8 C 116 H 18 138/76 96 O2 Del Method 09/27/25 00:28 Room Air 09/27/25 00:15 Room Air 09/26/25 23:56 09/26/25 22:58 09/26/25 22:51 Room Air Laboratory Results Laboratory Results WBC 3.13 K/ul (4.8-10.8) L 09/26/25 22:55 RBC 4.73 M/uL (4.20-5.40) 09/26/25 22:55 Hgb 13.6 g/dL (12.0-16.0) 09/26/25 22:55 Hct 38.0 % (37.0-47.0) 09/26/25 22:55 MCV 80.3 fL (80.0-100.0) 09/26/25 22:55 MCH 28.8 pg (25.0-34.0) 09/26/25 22:55 MCHC 35.8 g/dL (32.0-36.0) 09/26/25 22:55 RDW Std Deviation 37.2 fL (36.4-46.3) 09/26/25 22: RDW Coeff of July 12.8 % (11.5-14.5) 09/26/25 22:55 Plt Count 230 K/uL (130-400) 09/26/25 22:55 MPV 9.4 fL (9.4-12.4) 09/26/25 22:55 Immature Gran % (Auto) 0.3 % 09/26/25 22:55 Neut % (Auto) 28.7 % 09/26/25 22:55 Lymph % (Auto) 51.8 % 09/26/25 22:55 [place] % (Auto) 17.6 % 09/26/25 22: Eos % (Auto) 1.0 % 09/26/25 22: Baso % (Auto) 0.6 % 09/26/25 22:55 Neut # (Auto) 0.90 K/uL (1.40-6.50) L* 09/26/25 22:55 Lymph # (Auto) 1.62 K/uL (1.20-3.40) 09/26/25 22:55 [place] # (Auto) 0.55 K/uL (0.11-0.59) 09/26/25 22:55 Eos # (Auto) 0.03 K/uL (0.00-0.50) 09/26/25 22:55 Baso # (Auto) 0.02 K/uL (0.00-0.20) 09/26/25 22:55 Immature Gran # (Auto) 0.01 K/uL (0.01-0.20) 09/26/25 22:55 PT 10.3 Seconds (9.0-12.0) 09/26/25 22:55 INR 1.0 (0.9-1.1) 09/26/25 22:55 Sodium 141 mmol/L (136-145) 09/26/25 22:55 Potassium 3.8 mmol/L (3.5-5.1) 09/26/25 22:55 Chloride 106 mmol/L (98-107) 09/26/25 22:55 Carbon Dioxide 24 mmol/L (21-32) 09/26/25 22:55 Anion Gap 11 (3-11) 09/26/25 22:55 BUN 18 mg/dl (6-23) 09/26/25 22:55 Creatinine 0.78 mg/dl (0.6-1.2) 09/26/25 22:55 Est Cr Clr Drug Dosing 78.8 ml/min 09/26/25 22:55 eGFR 85.82 09/26/25 22:55 BUN/Creatinine Ratio 23.1 (10-20) H 09/26/25 22:55 Glucose 158 mg/dl (70-99(Fasting)) H 09/26/25 22:55 POC Glucose 132 mg/dl (70-99) H 09/27/25 02:51 Calcium 9.8 mg/dl (8.6-10.3) 09/26/25 22:55 Magnesium 2.1 mg/dl (1.7-2.4) 09/26/25 22:55 Total Bilirubin 0.5 mg/dl (0.2-1.0) 09/26/25 22:55 AST 16 U/L (13-39) 09/26/25 22:55 ALT 19 U/L (7-52) 09/26/25 22:55 Alkaline Phosphatase 92 U/L (34-104) 09/26/25 22:55 Troponin I High Sens 5.7 pg/ml (0-14) 09/26/25 22:55 Total Protein 8.0 gm/dl (6.0-8.3) 09/26/25 22:55 Albumin 4.5 gm/dl (3.4-5.0) 09/26/25 22:55 Globulin 3.5 gm/dl (2.5-4.0) 09/26/25 22:55 Albumin/Globulin Ratio 1.3 (0.9-2) 09/26/25 22:55 TSH 4.324 uIu/ml (0.300-4.500) 09/26/25 22:55 Impressions Chest X-Ray 09/26/25 22:55 EXAM: XR chest 1V portable CLINICAL HISTORY: Dysrhythmia. TECHNIQUE: An X-ray image of the chest is obtained in AP projection. COMPARISON: Compared to the previous study, dated 04/21/2024. FINDINGS: Pulmonary Parenchyma: No evidence of consolidation, collapse, or focal opacities. No pulmonary nodules are identified. Left lower lung zone atelectatic band. No evidence of pleural effusion or pleural thickening. Heart and Mediastinum: Heart size and shape are normal. No mediastinal widening or masses. No hilar or mediastinal lymphadenopathy. Bony Thorax: Bony thorax appears intact without fractures or deformities. Calcification is seen adjacent to the left humeral head. Soft Tissues: Soft tissues overlying the chest wall are unremarkable. ECG leads are seen overlying the chest. IMPRESSION: 1. No acute cardiopulmonary abnormalities are identified. 2. No significant interval changes from the prior study. Electronically signed by Domenico Hooks 09-27-2025 01:06 AM Code Status & VTE Plan VTE Prophylaxis Plan VTE Prophylaxis will be ordered: Yes PG Care Time/CCT Total # of Minutes Spent Total Time Spent with Patient: Total time spent is greater than 50% in coordination of care (as documented) at patient's floor/unit and/or counseling patient: Coding Level of Care Code 31247 INT INP/OBS CARE 3/75MIN Diagnoses Atrial fibrillation with RVR I48.91 Sleep apnea G47.30 Diabetes mellitus E11.9 Hyperlipidemia E78.5 Neutropenia D70.9 Neutropenia type: unspecified (5) Neutropenia Neutropenia type: unspecified Qualified Code(s): D70.9 - Neutropenia, unspecified
--- NOTE | 2025-09-27 01:06 | XRay Report ---
EXAM: XR chest 1V portable CLINICAL HISTORY: Dysrhythmia. TECHNIQUE: An X-ray image of the chest is obtained in AP projection. COMPARISON: Compared to the previous study, dated 04/21/2024. FINDINGS: Pulmonary Parenchyma: No evidence of consolidation, collapse, or focal opacities. No pulmonary nodules are identified. Left lower lung zone atelectatic band. No evidence of pleural effusion or pleural thickening. Heart and Mediastinum: Heart size and shape are normal. No mediastinal widening or masses. No hilar or mediastinal lymphadenopathy. Bony Thorax: Bony thorax appears intact without fractures or deformities. Calcification is seen adjacent to the left humeral head. Soft Tissues: Soft tissues overlying the chest wall are unremarkable. ECG leads are seen overlying the chest. IMPRESSION: 1. No acute cardiopulmonary abnormalities are identified. 2. No significant interval changes from the prior study. Electronically signed by Domenico Hooks 09-27-2025 01:06 AM
[2025-09-27] MEDS: STAT IV Infusion **Titration per Protocol STA (01:49)
[2025-09-27] MEDS ORDERED: LEVALBUTEROL 1.25 MG/3 ML NEB INH PRN (02:46)
[2025-09-27] MEDS ORDERED: GLUCAGON FOR INJ 1 MG VIAL SQ PRN (02:46)
[2025-09-27] MEDS ORDERED: ACETAMINOPHEN 325 MG TAB PO PRN (02:46)
[2025-09-27] MEDS ORDERED: CARBOHYDRATES FOR HYPOGLYCEMIA PO PRN (02:46)
[2025-09-27] MEDS ORDERED: MELATONIN 3 MG TAB PO PRN (02:46)
[2025-09-27] MEDS ORDERED: ONDANSETRON INJ 2 MG/ML 2 ML VIAL IV PRN (02:46)
[2025-09-27] MEDS ORDERED: DEXTROSE 50% 50 ML SYRINGE IV PRN (02:46)
[2025-09-27] MEDS ORDERED: DOCUSATE SODIUM 100 MG CAP PO PRN (02:46)
[2025-09-27] MEDS ORDERED: GLUCOSE 40% GEL 15 GM TUBE PO PRN (02:46)
[2025-09-27] MEDS ORDERED: GLUCOSE 10 TAB/TUBE PO PRN (02:46)
[2025-09-27 07:40] VITALS: RESP 19; TEMP 97.9
[2025-09-27] MEDS ORDERED: FLUTICASONE/VILANTEROL 200/25MCG 14 PUFFS/INHALER INH PRN (09:00)
[2025-09-27] MEDS: INSULIN ASPART PER UNIT CHARGE SC SCH (09:25)
[2025-09-27] MEDS: ATORVASTATIN 10 MG TAB PO SCH (09:25)
[2025-09-27] MEDS: APIXABAN 5 MG TABLET PO SCH (09:25)
[2025-09-27] MEDS: METOPROLOL TARTRATE 25 MG TAB PO SCH (11:25)
[2025-09-27 11:30] VITALS: BP 110/64; O2SAT 95
--- NOTE | 2025-09-27 13:16 | Discharge Summary ---
Discharge Summary Date of Service September 27, 2025 Principal Dx & Hospital Course #1 = Principal Diagnosis (1) Atrial fibrillation with RVR: (2) Sleep apnea: (3) Diabetes mellitus: (4) Hyperlipidemia: (5) Neutropenia: Plan Assessment/Plan - 60yo female presenting with atrial fibrillation with rapid ventricular response. HR has improved following IV Metoprolol, IV Diltiazem push, now on Diltiazem drip. Patient has had episodes of atrial fibrillation in the past - presently not on any anticoagulation or rate controlling medications. Asymptomatic. Blood pressure acceptable. #Atrial fibrillation w/ rvr -Admit to PCU -Started on Diltiazem gtt that ran through the night and still at 5mg/hr this AM -Anticoagulation with Eliquis 5mg po BID - [id number]=5, female and history of DM -Echocardiogram obtained-EF ~60%, no valve abnormalities -Pt with a h/o afib, this is the second documented occurrence, last occurrence was 10 yrs ago. Echo last year demonstrated preserved EF 65-70%. -Not on any BB/CCB or ACT after last occurrence. Does not follow regularly with cardiology. -Trop normal at 5.7, mag 2.1, and K+ 3.8 -Given dose of Lopressor 25mg this AM with plans to continue BID - Patient converted to normal sinus rhythm prior to discharge -Continue Eliquis 5mg BID - discount coupons to be given to patient prior to discharge #ABI - patient non-compliant with CPAP. Encourage use, could help to manage further episodes of atrial fibrillation. Patient does not wish to wear it now #Diabetes -ISS #Hyperlipidemia -Continue Atorvastatin #Neutropenia - chronic, stable. Patient has been seen by Hematology in the past Follow up with PCP within 1 week or sooner if needed. Start taking medications starting this evening. Call 911 or return to the ER in the event of a medical emergency. Admission HPI Per Admitting Provider 60yo female with history of DM, ABI, prior DVT s/p management with 6 months of Coumadin presenting with acute atrial fibrillation. Patient with episodes of atrial fibrillation in the past - likely in 1994, again several other times. This evening around 20:30 patient developed acute onset palpitations, racing and pounding heart. This occurred while having a "heated conversation" with a family member. No chest pain or syncope. No shortness of breath. In the ER patient found to be in atrial fibrillation with rapid ventricular response ER Course: Diltiazem 15mg IV Metoprolol 5mg IV Diltiazem gtt Discharge Exam GENERAL: 60 yo well-nourished [place]. No distress. LUNGS: Clear to auscultation bilaterally w/o W/R/R. CARDIOVASCULAR: Irregular rate and rhythm (at time of my assessment) but later converted to NSR ABDOMEN: Soft, non-tender and non-distended. BS normoactive x 4 quad. EXTREMITIES: No edema. Non-tender. Peripheral pulses +2/4. SKIN: Warm, dry, intact. No rashes or lesions. Discharge Plan Discharge Items Patient Disposition: Home - Self-Care Reason For Visit: atrial fibrillation Discharge Diagnosis: atrial fibrillation Condition on Discharge: Fair Activity: Resume your previous activity Non-emergency contact: Primary Care Provider Call non-emergency contact if: you have any medication questions and your symptoms worsen Follow-up/Referrals: River Biggs MD [Primary Care Provider] - 10/08/25 1:30 pm (Hospital follow up with Melissa Fritz PA-C on October 08, 2025 at 1:30 pm.) Diet: Carb Consistent or DM2 and Vegan (no animal product) Addtl Attending Provider Instructions: You were hospitalized due to atrial fibrillation with rapid rate. You were placed on a medication through your IV called Diltiazem to reduce your heart rate. You were given a medication called Lopressor (metoprolol tartrate) this morning and your Diltiazem throughout IV was discontinued. Fortunately, your heart converted back into normal sinus rhythm. You underwent an echocardiogram (ultrasound of your heart) that was fairly normal, heart is strong and squeezing effectively, no abnormalities noted with your valves. At this time, you will be discharged home on metoprolol tartrate 25mg, one tablet twice a day (morning and evening) to reduce your heart rate and help prevent recurrences of atrial fibrillation along with eliquis 5mg, one tablet twice a day (morning and evening) to reduce your risk of forming blood clots and possibly having a stroke in the event that you should go back into atrial fibrillation. Discount cards should be provided to you for the Eliquis by case management prior to your hospital departure. Your medications should be started this evening 09/27/25 and have been sent to the pharmacy on file. Follow up with your family doctor within 1 week or sooner if needed. Return to the ER in the event of a medical emergency. Pending Studies at Discharge: No Stand-Alone Forms: [facility], Smoking Cessation Medications and DC Order Prescriptions: New metoprolol tartrate 25 mg Tablet 25 mg PO BID Qty: 60 0RF Eliquis 5 mg Tablet 5 mg PO BID Qty: 60 0RF Continued atorvastatin 10 mg tablet 10 mg PO DAILY Qty: 90 3RF albuterol sulfate 90 mcg/actuation HFA aerosol inhaler 2 puff inhalation Q6H PRN (Reason: shortness of breath) Qty: 18 3RF coQ10 (ubiquinol) [Qunol Link CoQ10] 100 mg capsule 100 mg PO BID levalbuterol HCl 1.25 mg/3 mL solution for nebulization 1.25 mg inhalation TID PRN (Reason: shortness of breath or wheezing) Qty: 1 budesonide-formoterol 160-4.5 mcg/actuation HFA aerosol inhaler 2 puffs inhalation BID PRN (Reason: Shortness Of Breath) Qty: 1 mecobalamin (vitamin B12) 1,000 mcg tablet,chewable 1,000 mcg PO DAILY Qty: 90 3RF tirzepatide 7.5 mg/0.5 mL pen injector 7.5 mg subcut WK Qty: 2 5RF Rx Instructions: FRIDAYS turmeric root extract 500 mg capsule 500 mg PO QAM Rx Instructions: PER PT "MAKE A TEA WITH TURMERIC" albuterol sulfate 2.5 mg /3 mL (0.083 %) solution for nebulization 2.5 mg inhalation Q4H PRN (Reason: shortness of breath or wheezing) Qty: 90 0RF cholecalciferol (vitamin D3) [Vitamin D3] 125 mcg (5,000 unit) Tablet 125 mcg PO DAILY Discharge Orders: Discharge Order (Routine); Ordered 09/27/25 Ordered By: Mireille Penn Admission Data Admit Date/Time: 09/27/25 00:53 Attending Provider: Suzie Bermudez Admit Provider: Danae Parisi Primary Care Provider: River Biggs V. Other Providers: Danae Parisi Other Interventions: Discharge Summary Assessment (RN) Last Done: 09/27/25 14:19 Hospital Stay Data Consultations 09/27/25 00:22 ED Decision to Admit Stat Pending Results Patient Have Any Pending Studies at Discharge: No Discharge Instructions Given to Patient (Per Discharging Provider) You were hospitalized due to atrial fibrillation with rapid rate. You were placed on a medication through your IV called Diltiazem to reduce your heart rate. You were given a medication called Lopressor (metoprolol tartrate) this morning and your Diltiazem throughout IV was discontinued. Fortunately, your heart converted back into normal sinus rhythm. You underwent an echocardiogram (ultrasound of your heart) that was fairly normal, heart is strong and squeezing effectively, no abnormalities noted with your valves. At this time, you will be discharged home on metoprolol tartrate 25mg, one tablet twice a day (morning and evening) to reduce your heart rate and help prevent recurrences of atrial fibrillation along with eliquis 5mg, one tablet twice a day (morning and evening) to reduce your risk of forming blood clots and possibly having a stroke in the event that you should go back into atrial fibrillation. Discount cards should be provided to you for the Eliquis by case management prior to your hospital departure. Your medications should be started this evening 09/27/25 and have been sent to the pharmacy on file. Follow up with your family doctor within 1 week or sooner if needed. Return to the ER in the event of a medical emergency. Supervising Physician Co-Signing Physician Notes PA Supervision Note: I did not personally see or examine the patient today, but I verified all patel points of JENNIFER Penn's assessment and plan with the following exceptions/additions: None Total Time Total Time Spent Total Time Spent (In Minutes): 35 minutes Total Time Includes: Examination of the Patient, Discharge Planning and Medication Reconciliation Coding Level of Care Code 62852 INP/OBS DISCH >30 MIN Diagnoses Atrial fibrillation with RVR I48.91 Sleep apnea G47.30 Diabetes mellitus E11.9 Hyperlipidemia E78.5 Neutropenia D70.9 Neutropenia type: unspecified
[2025-09-27 14:42] VITALS: PULSE 67
--- NOTE | 2025-09-28 12:18 | Electrocardiogram Report ---
Test Reason : Blood Pressure : */* mmHG Vent. Rate : 160 BPM Atrial Rate : * BPM P-R Int : * ms QRS Dur : 80 ms QT Int : 282 ms P-R-T Axes : * 125 11 degrees QTcB Int : 460 ms Atrial fibrillation with rapid ventricular response Left posterior fascicular block Nonspecific ST abnormality Abnormal ECG When compared with ECG of 21-Apr-2024 07:25, Atrial fibrillation has replaced Sinus rhythm Vent. rate has increased by 80 bpm Left posterior fascicular block is now Present Confirmed by Christine Caba (Jaylyn) on 09/28/2025 12:18:04 PM Referred By: REFERRED SELF Confirmed By: Christine Caba
== END 2025-09-27 14:48 | disposition home or self-care (01) | DRG 310 ==
LOC: ED 22:48 → SUATTDRO 09-27 00:53 → INTOOBSV 09-27 00:53 → 2S 09-27 00:53